=== PATIENT | male | born 1965 | race Caucasian/White ===

== ENCOUNTER 2020-05-19 23:30 | Inpatient (IN) | payer OTHER ==
--- NOTE | 2020-05-20 00:17 | PDOC ---
Documentation entered by Sherita Paiz SCRIBE, acting as scribe for Erica Churchill DO. Erica Churchill DO: This documentation has been prepared by the lucien, Sherita Paiz SCRIBE, under my direction and personally reviewed by me in its entirety. I confirm that the documentation accurately reflects all work, treatment, procedures, and medical decision making performed by me. History of Present Illness - General Stated Complaint: CHEST PAIN Time Seen by Provider: 05/19/20 23:36 History Source: Patient Exam Limitations: No Limitations - History of Present Illness Initial Comments: 05/20/20 00:02 Patient is a 54 year old male with a significant past medical history of hyper tension, high cholesterol, diabetes, strokes, alcohol abuse (6-8 drinks a day), facial surgeries, knee surgeries, arthritis, substance abuse, hepatitis, and emphysema. who presents to the ED, from [facility], with SOB and right sided chest pain x2 hours. Patient stated he was sitting in his chair when the sudden onset of his symptoms occurred. Patient also disclosed that he has nit been taking his perscribed medications for the past 4 days. Patient endorses: current pain, chills, nausea, coughing up more phillips sputum than usual. Patient denies: Allergies: NKDA Past History - Medical History Allergies/Adverse Reactions: Allergies Allergy/AdvReac Type Severity Reaction Status Date / Time No Known Allergies Allergy Verified 05/19/20 22:17 Review of Systems - Review of Systems Able to Perform ROS?: Yes Comments:: 05/20/20 00:07 GENERAL/CONSTITUTIONAL: + Chills. No weakness. HEAD, EYES, EARS, NOSE AND THROAT: No change in vision. No ear pain or discharge. No sore throat. GASTROINTESTINAL: + Nausea. No vomiting, diarrhea or constipation. GENITOURINARY: No dysuria, frequency, or change in urination. CARDIOVASCULAR: + Chest pain + Shortness of breath. RESPIRATORY: + Cough. No wheezing, or hemoptysis. MUSCULOSKELETAL: No joint or muscle swelling or pain. No neck or back pain. SKIN: No rash NEUROLOGIC: No headache, vertigo, loss of consciousness, or change in strength/sensation. ENDOCRINE: No increased thirst. No abnormal weight change. HEMATOLOGIC/LYMPHATIC: No anemia, easy bleeding, or history of blood clots. ALLERGIC/IMMUNOLOGIC: No hives or skin allergy. *Physical Exam - Physical Exam 05/20/20 00:09 Constitutional: Awake, alert, oriented. No acute distress. Head: Normocephalic. Atraumatic Eyes: EOMI. ENT: Mucous membranes are moist and intact. no tongue fasciculations Neck: Supple. Full ROM. No lymphadenopathy. Cardiovascular: Regular rate. Regular rhythm. S1, S2 regular. Distal pulses are 2+ and symmetric. Pulmonary/Chest: No evidence of respiratory distress. soft end expiratory wheezing b/l bases Abdominal: Soft and non-distended. There is no tenderness. No rebound, guarding or rigidity. No organomegaly. No palpable masses. Good bowel sounds. Musculoskeletal: No edema. No cyanosis. No clubbing. Full range of motion in all extremities. No calf tenderness. Radial/pedal pulses are intact and 2+ bilaterally Skin: Skin is warm and dry. Neurological: Alert and oriented to person, place, and time. no focal deficits 05/20/20 00:11 Heart Score/ECG Review - History History: Moderately suspicious - Electrocardiogram EKG: Normal - Age Age: 45-65 - Risk Factors Risk Factors Heart Score: Yes Hx Hypercholesterolemia, Yes Hx Hypertension, Yes Hx Diabetes Based on the list above the patient has:: >/=3 risk factors or Hx atherosclerotic disease - Troponin Troponin: </= normal limit - Score Heart Score - Total: 4 - ECG Intrepretation Comment:: 05/20/20 00:15 sinus at 95, nl axis, nl interval, no acute st/t wave findings ED Treatment Course - LABORATORY CBC & Chemistry Diagram: 05/20/20 00:18 05/20/20 00:18 Medical Decision Making - Medical Decision Making 05/20/20 00:13 a/p: 54yo male with R sided cp -pt went to detox for evaluation for etoh abuse -drug screen at detox showed cocaine + benzo +, but pt denies drug use -states he drinks 4-6 beers a day -pt c/o R sided cp, cough- productive phillips sputum -no n/v/d -hx of emphysema, htn, hld, dm - missed 4 days of meds -will send labs, ekg, cxr, glu -currently no hand tremors or tongue fasiculations, not tachy -will monitor and reassess 05/20/20 01:18 cxr shows pulm vasc congestion 05/20/20 01:30 trop neg 05/20/20 01:30 no pna will obs for acs 05/20/20 01:32 pt also wheezing, hx of emphysema, copd exacerbation albuterol and prednisone given abx for copd exacerbation 05/20/20 01:48 pt updated and agrees to stay for further eval. sleeping in the room microblog sent for obs 05/20/20 02:09 case discussed with alexa who accepts pt to service Discharge - Discharge Information Problems reviewed: Yes Clinical Impression/Diagnosis: Chest pain, Cough, Emphysema of lung Condition: Fair - Admission Yes - Follow up/Referral - Patient Discharge Instructions - Post Discharge Activity
[2020-05-20 00:45] LABS: VENOUS BASE EXCESS -1.9 mmol/L (-2-2); VENOUS O2 SATURATION 67.1 % (70-80); VENOUS PCO2 42.3 mmHg (38-52); VENOUS PH 7.363 (7.310-7.410)
[2020-05-20 00:48] LABS: INR 0.88 (0.83-1.09); PROTHROMBIN TIME (PATIENT) 10.4 SEC (9.7-13.0)
[2020-05-20 00:50] LABS: ACTIVATED PTT 28.4 SECONDS (25.2-36.5); BASO % 1.2 % (0-2.0); EOS % 7.1 % (0-4.5); HEMATOCRIT 39.7 % (35.4-49); HEMOGLOBIN 13.7 GM/dL (11.7-16.9); LYMPH % 33.4 % (8-40); MCH 34.4 pg (25.7-33.7); MCHC 34.5 g/dl (32.0-35.9); MEAN CELL VOLUME 99.7 fl (80-96); MEAN PLT VOLUME 7.5 fl (7.5-11.1); NEUT % 47.3 % (42.8-82.8); PLATELET COUNT 217 K/MM3 (134-434); RBC 3.98 M/mm3 (4.00-5.60); RDW 13.4 % (11.9-15.9); WHITE BLOOD COUNT 5.9 K/mm3 (4.0-10.0)
[2020-05-20] MEDS ORDERED: ALBUTEROL SO4 HFA INHALER IH ONE ×2 (01:18→04:54)
[2020-05-20] MEDS ORDERED: ASPIRIN 81 MG CHEWABLE TABLETS PO ONE (01:19)
[2020-05-20 01:24] LABS: ALBUMIN 3.2 g/dl (3.4-5.0); ALK PHOS 70 U/L (45-117); ANION GAP 7 MMOL/L (8-16); BILIRUBIN,TOTAL 0.3 mg/dL (0.2-1); BLOOD UREA NITROGEN 17.3 mg/dL (7-18); CALCIUM 8.5 mg/dL (8.5-10.1); CHLORIDE 108 mmol/L (98-107); CO2 27 mmol/L (21-32); CREATININE 1.3 mg/dL (0.55-1.3); GLUCOSE,RANDOM 136 mg/dL (74-106); N-TERMINAL BNP 23.6 pg/ml (5-125); POTASSIUM 4.2 mmol/L (3.5-5.1); SGOT/AST 25 U/L (15-37); SGPT/ALT 39 U/L (13-61); SODIUM 141 mmol/L (136-145); TOT PROT 6.6 g/dl (6.4-8.2)
[2020-05-20] MEDS ORDERED: AZITHROMYCIN IVPB 500 MG in DEXTROSE 5%-WATER - 250 ML IVPB ONE (01:32)
[2020-05-20] MEDS ORDERED: predniSONE 20 MG TABLET (UD) PO ONE (01:32)
--- NOTE | 2020-05-20 02:19 | PN ---
Teaching Attending Note Name of Resident: Shiv Odell ATTENDING PHYSICIAN STATEMENT I saw and evaluated the patient. I reviewed the resident's note and discussed the case with the resident. I agree with the resident's findings and plan as documented. SUBJECTIVE: Patient is a 54 year old man with a PMH of Hypertension, HLD, Tobacco use, NI DDM, CVA (residual right hand weakness), Polysubstance (alcohol, benzos, cocaine), Facial surgeries, Knee surgeries, Arthritis, Substance abuse, Hepatitis and Emphysema who presents to the ER from [facility] with SOB and right sided chest pain x2 hours. Patient stated he was sitting in his chair when the sudden onset of his symptoms occurred. Patient also disclosed that he has not been taking his prescribed medications for the past 4 days. Currently in pain, with chills, nausea and is coughing up more phillips sputum than usual. Patient denies abdominal pain, headache, palpitations, dizziness, fever, vomiting, diarrhea, constipation, dysuria, frequency, urgency, melena, hematochezia or hematuria. No sick contacts or recent travels. Family history of lung cancer in father. OBJECTIVE: Alert Vital Signs Period Temp Pulse Resp BP Sys/Cagle Pulse Ox Last 24 Hr 97.9 F 96 19 134/91 95-96 HEENT: No Jaundice, eye redness or discharge, PERRLA, EOMI. Normocephalic, atraumatic. External ears are normal and hearing is grossly intact. No nasal discharge. Neck: Supple, nontender. No palpable adenopathy or thyromegaly. No JVD Chest: Good effort. Bilateral wheezing. Clear to percussion. Heart: Regular. No S3, rub or murmur Abdomen: Not distended, soft, nontender and no HSM. No rebound or guarding. Normal bowel sounds. Ext: Peripheral pulses intact. No leg edema. Skin: Warm and dry. No petechiae, rash or ecchymosis. Neuro: Alert. Oriented x3. CN 2-12 grossly intact. Sensation grossly intact in all four extremities; right hand weakness. Psych: Appropriate mood and affect. Good insight. Abnormal Lab Results 05/20/20 05/20/20 05/20/20 00:18 00:18 00:18 RBC 3.98 L MCV 99.7 H MCH 34.4 H Monocytes % 11.0 H Eosinophils % 7.1 H VBG O2 Sat (Martha) 67.1 L Chloride 108 H Anion Gap 7 L Random Glucose 136 H Albumin 3.2 L Current Medications Generic Name Dose Route Start Last Admin Trade Name Jina PRN Reason Stop Dose Admin Albuterol Sulfate 2 puff 05/20/20 05:45 Ventolin Hfa Inhaler - IH Q4H MANOLO Aspirin 81 mg 05/20/20 10:00 Ecotrin - PO DAILY [facility] Atorvastatin Calcium 40 mg 05/20/20 22:00 Lipitor - PO HS MANOLO Folic Acid 1 mg 05/21/20 10:00 Folic Acid - PO DAILY [facility] Heparin Sodium (Porcine) 5,000 unit 05/20/20 06:00 05/20/20 05:42 Heparin - SQ 5,000 unit TID [facility] Administration Azithromycin 500 mg in 250 mls @ 250 mls/hr 05/21/20 10:00 Zithromax 500mg Ivpb (Pre-Docked) IVPB DAILY [facility] Insulin Aspart 1 vial 05/20/20 07:00 Novolog Vial Sliding Scale - SQ ACHS [facility] Protocol Lorazepam 2 mg 05/20/20 10:00 Ativan - PO ONCE PRN WITHDRAWAL(CONT SUBST) Prednisone 40 mg 05/20/20 10:00 Deltasone - PO DAILY [facility] Thiamine HCl 100 mg 05/21/20 10:00 Vitamin B1 - PO DAILY [facility] ASSESSMENT AND PLAN: 1. COPD exacerbation/Chest pain - CXR shows increased interstitial markings. Chest pain is atypical. Started on supplemental oxygen via nasal cannula. ER staff prescribed Aspirin 324 mg, Albuterol and PO Prednisone 60 mg for the patient. EKG shows NSR at 95/minute and QTc [address]-T wave changes. Initial troponin is negative. Will admit to telemetry, trend troponin, repeat EKG, get ECHO, TSH and fasting lipids. Consult Cardiology/Pulmonary. Will treat with Duoneb, Prednisone 40 mg qd, Symbicort and Azithromycin 500 mg IV QD and monitor peak flow. Viral testing for COVID-19 ordered and patient placed on airborne, droplet and contact isolation. Will continue comprehensive care for all of patients comorbid conditions. 2. Hypoalbuminemia - Possibly due to combined effects of malnutrition and inflammation associated with comorbid conditions. Will ensure adequate dietary protein intake and also consult technical training instructor. Urinalysis pending. 3. DM For now, we will hold the home diabetes drugs and implement sliding scale insulin regimen. Provide comprehensive diabetes care with patient teaching and counseling about the importance of adherence to prescribed diabetes regimen, euglycemia, eye care and foot care. 4. Tobacco Use Counseled on risks associated with tobacco use. We will provide patient all the necessary assistance to facilitate smoking cessation and prescribe Nicotine patch. 5. Obesity Counseled on the risks associated with obesity. Will provide patient all the necessary assistance, counseling and positive reinforcement to facilitate weight loss. Consult technical training instructor. 6. Polysubstance abuse Drug screen at the Detox facility showed cocaine and benzodiazepines. Will monitor for drug withdrawal. Implement [facility] withdrawal [facility] and do neurochecks. Implement seizure, fall and aspiration precautions. Treat with IV Banana bag, thiamine and folic acid. Monitor and replete electrolytes (Ca,Mg,K,P). Counseled patient about abstaining from illicit drugs/alcohol. Will consult senior technical specialist and refer to alcohol/drug detox upon discharge. 7. Hypertension Will restart suitable outpatient antihypertensive drugs when clinically appropriate. Subsequently, will revise regimen to ensure [id number] excellent BP control. Patient counseled on the injurious effects of uncontrolled hypertension. Nonpharmacologic measures to control hypertension like weight loss, salt restriction and exercise stressed. Importance of adherence to treatment regimen and attainment of normotension emphasized. 8. DVT prophylaxis - Lovenox 40 mg SQ q 24 hours. 9. Advance directives - Full code
[2020-05-20] MEDS ORDERED: AZITHROMYCIN IVPB 500 MG/250 ML BAG IVPB ONE (03:48)
[2020-05-20] MEDS ORDERED: predniSONE 20 MG TABLET (UD) ONE ×2 (03:48→10:58)
[2020-05-20] MEDS ORDERED: ASPIRIN 325 MG ENTERIC COATED TABLET (FP) ONE (03:48)
[2020-05-20] MEDS ORDERED: THIAMINE HCL 200 MG/2 ML VIAL ONE (05:41)
[2020-05-20] MEDS ORDERED: HEPARIN NA (PORCINE) 5,000 UNITS/ML 1ML VIAL ONE ×3 (05:41→22:14)
[2020-05-20] MEDS: HEPARIN NA (PORCINE) 5,000 UNITS/ML 1ML VIAL SQ SCH ×3 (05:42→22:18)
[2020-05-20] MEDS ORDERED: THIAMINE HCL 200 MG/2 ML VIAL IVPB ONE (05:45)
[2020-05-20] MEDS: ALBUTEROL SO4 HFA INHALER IH SCH ×5 (06:35→21:59)
[2020-05-20] MEDS: INSULIN SLIDING SCALE (NOVOLOG) 1 VIAL SQ SCH ×4 (07:21→22:14)
--- NOTE | 2020-05-20 08:22 | HP ---
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 Was seeking detox at [facility] but was declined d/t CIWA 3. Was offered Rehab but had sudden- onset Right-sided chest "tightness" while seated. Then endorsed SOB. Chest "tightness has resolved in the ED. Has had chronic intermittent cough w/ greenish-srinivasan phlegm. Has been treated for PNA 1 year prior. Has had breathing issues for over 5ys. At baseline, is able to play basketball and walk without SOB. Never had seizures. Has had episodes of tremors in the past. Has not been taking any of his regularly prescribed medications dt being homeless and not being able to reach his sister's house. Was incarcerated for 25ys, released in 2017. [facility] Course: -JEWELL 0.020 -POC UDS: +cocaine, +benzo -CIWA 3 -didn't qualify for Detox but offered Rehab ER course was notable for: -97.9F, 96, 134/91 -EM physical exam notable for end-expiratory wheezes -HEART 4 -prednisone 60, azithromycin, albuterol x1, [id number] Recent Travel: none PAST MEDICAL HISTORY: as above PAST SURGICAL HISTORY: jaw surgery, knee surgery, deviated septum surgery Social History: Smoking: denies Alcohol: denies Drugs: denies Allergies No Known Allergies Allergy (Verified 05/19/20 22:17) HOME MEDICATIONS: Home Medications Medication Instructions Recorded Unobtainable 05/20/20 REVIEW OF SYSTEMS CONSTITUTIONAL: Absent: fever, chills, diaphoresis, generalized weakness, malaise, loss of appetite, weight change HEENT: Absent: rhinorrhea, nasal congestion, throat pain, throat swelling, difficulty swallowing, mouth swelling, ear pain, eye pain, visual changes CARDIOVASCULAR: Absent: chest pain, syncope, palpitations, irregular heart rate, lightheadedness, peripheral edema RESPIRATORY: cough, SOB Absent: dyspnea with exertion, orthopnea, wheezing, stridor, hemoptysis GASTROINTESTINAL: Absent: abdominal pain, abdominal distension, nausea, vomiting, diarrhea, const ipation, melena, hematochezia GENITOURINARY: Absent: dysuria, frequency, urgency, hesitancy, hematuria, flank pain, genital pain MUSCULOSKELETAL: Absent: myalgia, arthralgia, joint swelling, back pain, neck pain SKIN: Absent: rash, itching, pallor HEMATOLOGIC/IMMUNOLOGIC: Absent: easy bleeding, easy bruising, lymphadenopathy, frequent infections ENDOCRINE: Absent: unexplained weight gain, unexplained weight loss, heat intolerance, cold intolerance NEUROLOGIC: Absent: headache, focal weakness or paresthesias, dizziness, unsteady gait, seizure, mental status changes, bladder or bowel incontinence PSYCHIATRIC: Absent: anxiety, depression, suicidal or homicidal ideation, hallucinations. PHYSICAL EXAMINATION Vital Signs - 24 hr 05/19/20 05/20/20 05/20/20 23:55 02:15 03:55 Temperature 97.9 F Pulse Rate 96 H Pulse Rate [ 84 Left Radial] Respiratory 19 16 Rate Blood Pressure 134/91 Blood Pressure 142/89 [Left Arm] O2 Sat by Pulse 95 96 98 Oximetry (%) 05/20/20 05/20/20 05/20/20 06:30 07:29 07:31 Temperature 98.3 F Pulse Rate Pulse Rate [ 84 Left Radial] Respiratory 17 Rate Blood Pressure Blood Pressure 149/99 [Left Arm] O2 Sat by Pulse 95 95 95 Oximetry (%) GENERAL: Awake, alert, and fully oriented, in no acute distress. Mildly dishevelled. HEAD: Normal with no signs of trauma. Poor dentition EYES: Pupils equal, round and reactive to light, extraocular movements intact, sclera anicteric, conjunctiva clear. EARS, NOSE, THROAT: Ears normal, nares patent, oropharynx clear without exudates. Moist mucous membranes. NECK: Normal range of motion, supple without lymphadenopathy, JVD, or masses. LUNGS: Breath sounds equal, clear to auscultation bilaterally. No wheezes, and no crackles. HEART: Regular rate and rhythm, normal S1 and S2 without murmur, rub or gallop. ABDOMEN: Soft, nontender, not distended, no guarding, no rebound, no masses. MUSCULOSKELETAL: Normal range of motion at all joints. No bony deformities or tenderness. UPPER EXTREMITIES: 2+ pulses, warm, well-perfused. No cyanosis. No clubbing. No peripheral edema. LOWER EXTREMITIES: 2+ pulses, warm, well-perfused. No calf tenderness. No peripheral edema. NEUROLOGICAL: Normal speech. Right hand with 4.5/5 bioinformatics specialist strength. CN II-XII intact. 5/5 strength of LUE, LLE, RLE CIWA 0 Laboratory Results - last 24 hr 05/20/20 05/20/20 05/20/20 00:18 00:18 00:18 WBC 5.9 RBC 3.98 L Hgb 13.7 Hct 39.7 MCV 99.7 H MCH 34.4 H MCHC 34.5 RDW 13.4 Plt Count 217 MPV 7.5 Absolute Neuts (auto) 2.8 Neutrophils % 47.3 Lymphocytes % 33.4 Monocytes % 11.0 H Eosinophils % 7.1 H Basophils % 1.2 Nucleated RBC % 0 PT with INR 10.40 INR 0.88 PTT (Actin FS) 28.4 VBG pH POC VBG pCO2 POC VBG pO2 VBG HCO3 VBG O2 Sat (Martha) VBG Base Excess Sodium 141 Potassium 4.2 Chloride 108 H Carbon Dioxide 27 Anion Gap 7 L BUN 17.3 Creatinine 1.3 Est GFR (CKD-EPI)AfAm 70.69 Est GFR (CKD-EPI)NonAf 60.99 POC Glucometer Random Glucose 136 H Calcium 8.5 Total Bilirubin 0.3 AST 25 ALT 39 Alkaline Phosphatase 70 Creatine Kinase 141 Troponin I < 0.02 B-Natriuretic Peptide 23.6 Total Protein 6.6 Albumin 3.2 L 05/20/20 05/20/20 00:18 06:20 WBC RBC Hgb Hct MCV MCH MCHC RDW Plt Count MPV Absolute Neuts (auto) Neutrophils % Lymphocytes % Monocytes % Eosinophils % Basophils % Nucleated RBC % PT with INR INR PTT (Actin FS) VBG pH 7.363 POC VBG pCO2 42.3 POC VBG pO2 36.2 VBG HCO3 23.5 VBG O2 Sat (Martha) 67.1 L VBG Base Excess -1.9 Sodium Potassium Chloride Carbon Dioxide Anion Gap BUN Creatinine Est GFR (CKD-EPI)AfAm Est GFR (CKD-EPI)NonAf POC Glucometer 141 Random Glucose Calcium Total Bilirubin AST ALT Alkaline Phosphatase Creatine Kinase Troponin I B-Natriuretic Peptide Total Protein Albumin ASSESSMENT/PLAN: 54M w/ pmh of HTN, HLD, IDDM(metform + basalgar 10U HS), stroke(persistent right 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 Admitted to Tele-Obs for ACS r/o and "COPD exacerbation". Pt symptoms resolved. #Right-sided chest pain --likely 2/2 tightness from COPD > HEART 4 > troponin neg x1 - sp ASA 324mg in ED - cw ASA 81mg QD - trend troponin - cardiology consult(Gitig): --recs pending #COPD exacerbation(wheezes resolved on my examination) - albuterol 2puffs q4h, scheduled - prednisone 40, QD - cw azithro #EtOH usage disorder --not in withdrawal > CIWA 0 - ativan 2mg PO in case of signs of withdrawal, then will start taper if necessary #NORMAN vs CKD > Cr 1.3 - US renal --pending FEN - no IVF - NPO DVT PPX - SQH Family Medical History Family History: As Documented Family Hx Cancer: Father (lung cancer) Family Hx Respiratory Disorders: Mother (emphysema) Visit type - Emergency Visit Emergency Visit: Yes ED Registration Date: 05/20/20 Care time: The patient presented to the Emergency Department on the above date and was hospitalized for further evaluation of their emergent condition. - New Patient This patient is new to me today: Yes Date on this admission: 05/20/20 - Critical Care Critical Care patient: No ATTENDING PHYSICIAN STATEMENT I saw and evaluated the patient. I reviewed the resident's note and discussed the case with the resident. I agree with the resident's findings and plan as documented. SUBJECTIVE: OBJECTIVE: ASSESSMENT AND PLAN:
--- NOTE | 2020-05-20 08:43 | PN ---
Teaching Attending Note Name of Resident: Maicol Schmidt ATTENDING PHYSICIAN STATEMENT I saw and evaluated the patient. I reviewed the resident's note and discussed the case with the resident. I agree with the resident's findings and plan as documented. SUBJECTIVE: Patient is comfortable with no alcohol withdrawel. OBJECTIVE: Vital Signs Temperature 98.3 F 05/20/20 06:30 Pulse Rate 84 05/20/20 06:30 Respiratory Rate 17 05/20/20 06:30 Blood Pressure 149/99 05/20/20 06:30 O2 Sat by Pulse Oximetry (%) 95 05/20/20 07:31 PE:per resident's note CBCD WBC 5.9 K/mm3 (4.0-10.0) 05/20/20 00:18 RBC 3.98 M/mm3 (4.00-5.60) L 05/20/20 00:18 Hgb 13.7 GM/dL (11.7-16.9) 05/20/20 00:18 Hct 39.7 % (35.4-49) 05/20/20 00:18 MCV 99.7 fl (80-96) H 05/20/20 00:18 MCHC 34.5 g/dl (32.0-35.9) 05/20/20 00:18 RDW 13.4 % (11.9-15.9) 05/20/20 00:18 Plt Count 217 K/MM3 (134-434) 05/20/20 00:18 MPV 7.5 fl (7.5-11.1) 05/20/20 00:18 CMP Sodium 141 mmol/L (136-145) 05/20/20 00:18 Potassium 4.2 mmol/L (3.5-5.1) 05/20/20 00:18 Chloride 108 mmol/L (98-107) H 05/20/20 00:18 Carbon Dioxide 27 mmol/L (21-32) 05/20/20 00:18 Anion Gap 7 MMOL/L (8-16) L 05/20/20 00:18 BUN 17.3 mg/dL (7-18) 05/20/20 00:18 Creatinine 1.3 mg/dL (0.55-1.3) 05/20/20 00:18 Random Glucose 136 mg/dL (74-106) H 05/20/20 00:18 Calcium 8.5 mg/dL (8.5-10.1) 05/20/20 00:18 Total Bilirubin 0.3 mg/dL (0.2-1) 05/20/20 00:18 AST 25 U/L (15-37) 05/20/20 00:18 ALT 39 U/L (13-61) 05/20/20 00:18 Alkaline Phosphatase 70 U/L (45-117) 05/20/20 00:18 Total Protein 6.6 g/dl (6.4-8.2) 05/20/20 00:18 Albumin 3.2 g/dl (3.4-5.0) L 05/20/20 00:18 CARDIAC ENZYMES Creatine Kinase 141 U/L (26-308) 05/20/20 00:18 Troponin I < 0.02 ng/ml (0.00-0.05) 05/20/20 00:18 Current Medications Generic Name Dose Route Start Last Admin Trade Name Freq PRN Reason Stop Dose Admin Albuterol Sulfate 2 puff 05/20/20 05:45 05/20/20 06:35 Ventolin Hfa Inhaler - IH 2 puff Q4H MANOLO Administration Aspirin 81 mg 05/20/20 10:00 Ecotrin - PO DAILY [facility] Atorvastatin Calcium 40 mg 05/20/20 22:00 Lipitor - PO HS MANOLO Folic Acid 1 mg 05/21/20 10:00 Folic Acid - PO DAILY [facility] Heparin Sodium (Porcine) 5,000 unit 05/20/20 06:00 05/20/20 05:42 Heparin - SQ 5,000 unit TID MANOLO Administration Azithromycin 500 mg in 250 mls @ 250 mls/hr 05/21/20 10:00 Zithromax 500mg Ivpb (Pre-Docked) IVPB DAILY [facility] Insulin Aspart 1 vial 05/20/20 07:00 05/20/20 07:21 Novolog Vial Sliding Scale - SQ Not Given ACHS [facility] Protocol Lorazepam 2 mg 05/20/20 10:00 Ativan - PO ONCE PRN WITHDRAWAL(CONT SUBST) Prednisone 40 mg 05/20/20 10:00 Deltasone - PO DAILY [facility] Thiamine HCl 100 mg 05/21/20 10:00 Vitamin B1 - PO DAILY [facility] Home Medications Medication Instructions Recorded Unobtainable 05/20/20 CXR: some congestive changes ASSESSMENT AND PLAN: This patient is a 54yom with PMhx of HTN, HLD, IDDM (metform + basalgar 10U HS), 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 and was found to have acute copd exacerbation. #Acute COPD exacerbation: on steroid, albuterol continue , will continue with oral steroid for total of 5 days #Acute congestive changes: echo ordered, BNP is pending. #Alcohol dependency :not in withdrawal, on thiamine, FA continue, ativan prn for possible withdrawel #Polysubstance dependency: abstinence #NORMAN : monitor in the setting of being diabetic, ordered A1c #IDDM: continue home meds, follow A1c #Hx of stroke with residual (right diamond powder mixer weakness) #Covid Pending #Hx of hepatitis C(treated with Abraham) #Monitor electrolytes DVT Px: hepain sq
[2020-05-20] MEDS ORDERED: LORazepam 1 MG TABLET PO PRN (10:00)
--- NOTE | 2020-05-20 10:00 | EKG ---
Test Reason : Blood Pressure : / mmHG Vent. Rate : 095 BPM Atrial Rate : 095 BPM P-R Int : 138 ms QRS Dur : 084 ms QT Int : 358 ms P-R-T Axes : 074 064 066 degrees QTc Int : 449 ms NORMAL SINUS RHYTHM NORMAL ECG NO PREVIOUS ECGS AVAILABLE Confirmed by ARDEN BARRETO MD ([id number]) on 05/20/2020 10:00:10 AM Referred By: Confirmed By:ARDEN BARRETO MD
[2020-05-20] MEDS ORDERED: ASPIRIN COATED 81 MG TABLET.EC ONE (10:58)
[2020-05-20] MEDS: predniSONE 20 MG TABLET (UD) PO SCH (10:59)
[2020-05-20] MEDS: ASPIRIN COATED 81 MG TABLET.EC PO SCH (10:59)
[2020-05-20 12:26] LABS: ANION GAP 6 MMOL/L (8-16); BLOOD UREA NITROGEN 15.8 mg/dL (7-18); CALCIUM 8.8 mg/dL (8.5-10.1); CHLORIDE 108 mmol/L (98-107); CHOLESTEROL 214 mg/dL (50-200); CO2 26 mmol/L (21-32); CREATININE 1.3 mg/dL (0.55-1.3); GLUCOSE,RANDOM 184 mg/dL (74-106); HDL CHOLESTEROL 65 mg/dL (40-60); LDL CHOLESTEROL (ONLY SJRH) 129 mg/dL (5-100); MAGNESIUM 2.2 mg/dL (1.8-2.4); POTASSIUM 4.2 mmol/L (3.5-5.1); SODIUM 139 mmol/L (136-145); TRIGLYCERIDES 120 mg/dL (0-150)
--- NOTE | 2020-05-20 13:53 | CON.PULM ---
Consult Consult Specialty:: PULMONARY Referred by:: Dr Ingram Reason for Consultation:: shortness of breath - History of Present Illness Chief Complaint: shortness of breath History of Present Illness: 54yo male with h/o HTN, DM, hyperlipidemia, h/o CVA, polysubstance abuse, Hep C s/p treatment who was admitted from [facility] with worsening shortness of breath. Reports some chest tightness, a cough productive of srinivasan sputum and wheezing. No fevers, chills or sweats. He does have an albuterol inhaler but has had access to his medications for the past 4 days. He is a current smoker, was as much as 1 PPD now down to 5-6 cigarettes/day. - History Source History Provided By: Patient, Medical Record Limitations to Obtaining History: No Limitations - Past Medical History Cardio/Vascular: Yes: HTN, Hyperlipdemia Endocrine: Yes: Diabetes Mellitus - Smoking History Smoking history: Never smoked Have you smoked in the past 12 months: No Home Medications - Allergies Allergies/Adverse Reactions: Allergies Allergy/AdvReac Type Severity Reaction Status Date / Time No Known Allergies Allergy Verified 05/19/20 22:17 - Home Medications Home Medications: Ambulatory Orders Chlordiazepoxide [Librium -] 25 mg PO DAILY 05/20/20 Lisinopril 10 mg PO DAILY 05/20/20 Metformin HCl [Glucophage] 500 mg PO BID 05/20/20 Metoprolol Succinate 50 mg PO DAILY 05/20/20 Rosuvastatin [Crestor -] 5 mg PO DAILY 05/20/20 Family Medical History Family Hx Cancer: Father (lung cancer) Family Hx Respiratory Disorders: Mother (emphysema) Review of Systems - Review of Systems Constitutional: reports: Weakness. denies: Chills, Fever Eyes: denies: Recent Change in Vision HENT: denies: Nasal Congestion, Throat Pain Neck: denies: Stiffness, Tenderness Cardiovascular: reports: Shortness of Breath. denies: Chest Pain, Edema Respiratory: reports: Cough, SOB on Exertion, Wheezing. denies: Hemoptysis Gastrointestinal: denies: Abdominal Pain, Nausea, Vomiting Genitourinary: denies: Dysuria, Hematuria Neurological: denies: Dizziness, Headache Endocrine: denies: Unexplained Weight Loss Physical Exam Vital Sings: Vital Signs Temperature 98.3 F 05/20/20 06:30 Pulse Rate 84 05/20/20 06:30 Respiratory Rate 17 05/20/20 06:30 Blood Pressure 149/99 05/20/20 06:30 O2 Sat by Pulse Oximetry (%) 95 05/20/20 07:31 Labs: CBC, BMP 05/20/20 00:18 05/20/20 11:40 Imaging - Results Chest X-ray: Report Reviewed, Image Reviewed (hilar fullness) Assessment/Plan Acute COPD Exacerbation Polysubstance Abuse Hep C s/p tx HTN DM Hyperlipidemia Smoker - continue steroids - inhaled bronchodilators - agree with azithromycin - O2 to keep SpO2 >90% - glucose control while on systemic steroids - smoking cessation discussed - DVT prophylaxis Thank you for this consult Jose Luis Bundy MD
--- NOTE | 2020-05-20 14:56 | CON.CARD ---
Cardiology Consult (text) - Consultation Consultation Note: cc: sob hpi: 54 m hx htn, hld, dm, cva, etoh abuse, cocaine use, smoking, copd, here with sob. Past few days has noticed wheezing, sob, cough, and central chest tightness. No loc pnd orthopnea dizzy le edema. After getting copd tx in er he is starting to feel better. pmh: per hpi psh: knee surgery social: per hpi fam: no premature cad, scd ros: per hpi; all others nl meds: Home Medications Medication Instructions Recorded Chlordiazepoxide [Librium -] 25 mg PO DAILY 05/20/20 Lisinopril 10 mg PO DAILY 05/20/20 Metformin HCl [Glucophage] 500 mg PO BID 05/20/20 Metoprolol Succinate 50 mg PO DAILY 05/20/20 Rosuvastatin [Crestor -] 5 mg PO DAILY 05/20/20 Current Medications Generic Name Dose Route Start Last Admin Trade Name Freq PRN Reason Stop Dose Admin Albuterol Sulfate 2 puff 05/20/20 05:45 05/20/20 10:56 Ventolin Hfa Inhaler - IH 2 puff Q4H MANOLO Administration Aspirin 81 mg 05/20/20 10:00 05/20/20 10:59 Ecotrin - PO 81 mg DAILY MANOLO Administration Atorvastatin Calcium 40 mg 05/20/20 22:00 Lipitor - PO HS MANOLO Folic Acid 1 mg 05/21/20 10:00 Folic Acid - PO DAILY MANOLO Heparin Sodium (Porcine) 5,000 unit 05/20/20 06:00 05/20/20 05:42 Heparin - SQ 5,000 unit TID MANOLO Administration Azithromycin 500 mg in 250 mls @ 250 mls/hr 05/21/20 10:00 Zithromax 500mg Ivpb (Pre-Docked) IVPB DAILY MANOLO Insulin Aspart 1 vial 05/20/20 07:00 05/20/20 12:43 Novolog Vial Sliding Scale - SQ 4 units ACHS MANOLO Administration Protocol Lorazepam 2 mg 05/20/20 10:00 Ativan - PO ONCE PRN WITHDRAWAL(CONT SUBST) Prednisone 40 mg 05/20/20 10:00 05/20/20 10:59 Deltasone - PO 40 mg DAILY MANOLO Administration Thiamine HCl 100 mg 05/21/20 10:00 Vitamin B1 - PO DAILY MANOLO pe: Vital Signs Period Temp Pulse Resp BP Sys/Cagle Pulse Ox Last 24 Hr 97.9 F-98.3 F 84-96 16-19 134-149/89-99 95-98 nad no jvd rrr s1s2 nomrg mild wheeze, nl eff aao3 no le e/c/c abd nt nd pos bs no jaundice diaphoresis pos dp pt no carotid bruits Laboratory Last Values WBC 5.9 K/mm3 (4.0-10.0) 05/20/20 00:18 RBC 3.98 M/mm3 (4.00-5.60) L 05/20/20 00:18 Hgb 13.7 GM/dL (11.7-16.9) 05/20/20 00:18 Hct 39.7 % (35.4-49) 05/20/20 00:18 MCV 99.7 fl (80-96) H 05/20/20 00:18 MCH 34.4 pg (25.7-33.7) H 05/20/20 00:18 MCHC 34.5 g/dl (32.0-35.9) 05/20/20 00:18 RDW 13.4 % (11.9-15.9) 05/20/20 00:18 Plt Count 217 K/MM3 (134-434) 05/20/20 00:18 MPV 7.5 fl (7.5-11.1) 05/20/20 00:18 Absolute Neuts (auto) 2.8 K/mm3 (1.5-8.0) 05/20/20 00:18 Neutrophils % 47.3 % (42.8-82.8) 05/20/20 00:18 Lymphocytes % 33.4 % (8-40) 05/20/20 00:18 Monocytes % 11.0 % (3.8-10.2) H 05/20/20 00:18 Eosinophils % 7.1 % (0-4.5) H 05/20/20 00:18 Basophils % 1.2 % (0-2.0) 05/20/20 00:18 Nucleated RBC % 0 % (0-0) 05/20/20 00:18 PT with INR 10.40 SEC (9.7-13.0) 05/20/20 00:18 INR 0.88 (0.83-1.09) 05/20/20 00:18 PTT (Actin FS) 28.4 SECONDS (25.2-36.5) 05/20/20 00:18 VBG pH 7.363 (7.310-7.410) 05/20/20 00:18 POC VBG pCO2 42.3 mmHg (38-52) 05/20/20 00:18 POC VBG pO2 36.2 mmHg (28-48) 05/20/20 00:18 VBG HCO3 23.5 mmol/L (23-29) 05/20/20 00:18 VBG O2 Sat (Martha) 67.1 % (70-80) L 05/20/20 00:18 VBG Base Excess -1.9 mmol/L (-2-2) 05/20/20 00:18 Sodium 139 mmol/L (136-145) 05/20/20 11:40 Potassium 4.2 mmol/L (3.5-5.1) 05/20/20 11:40 Chloride 108 mmol/L (98-107) H 05/20/20 11:40 Carbon Dioxide 26 mmol/L (21-32) 05/20/20 11:40 Anion Gap 6 MMOL/L (8-16) L 05/20/20 11:40 BUN 15.8 mg/dL (7-18) 05/20/20 11:40 Creatinine 1.3 mg/dL (0.55-1.3) 05/20/20 11:40 Est GFR (CKD-EPI)AfAm 70.69 05/20/20 11:40 Est GFR (CKD-EPI)NonAf 60.99 05/20/20 11:40 POC Glucometer 208 UNITS (80-120) 05/20/20 11:02 Random Glucose 184 mg/dL (74-106) H 05/20/20 11:40 Hemoglobin A1c % 5.8 % (4.2-6.3) 05/20/20 11:40 Calcium 8.8 mg/dL (8.5-10.1) 05/20/20 11:40 Phosphorus 2.0 mg/dL (2.5-4.9) L 05/20/20 11:40 Magnesium 2.2 mg/dL (1.8-2.4) 05/20/20 11:40 Total Bilirubin 0.3 mg/dL (0.2-1) 05/20/20 00:18 AST 25 U/L (15-37) 05/20/20 00:18 ALT 39 U/L (13-61) 05/20/20 00:18 Alkaline Phosphatase 70 U/L (45-117) 05/20/20 00:18 Creatine Kinase 141 U/L (26-308) 05/20/20 00:18 Troponin I < 0.02 ng/ml (0.00-0.05) 05/20/20 11:40 B-Natriuretic Peptide 23.6 pg/ml (5-125) 05/20/20 00:18 Total Protein 6.6 g/dl (6.4-8.2) 05/20/20 00:18 Albumin 3.2 g/dl (3.4-5.0) L 05/20/20 00:18 Triglycerides 120 mg/dL (0-150) 05/20/20 11:40 Cholesterol 214 mg/dL (50-200) H 05/20/20 11:40 Total LDL Cholesterol 129 mg/dL (5-100) H 05/20/20 11:40 HDL Cholesterol 65 mg/dL (40-60) H 05/20/20 11:40 ecg: sr nl intervals no ischemic changes cxr: no sig chf a/p: 54 m hx htn, hld, dm, cva, etoh abuse, cocaine use, smoking, copd, here with sob. sob, acute copd: -trops negx2, bnp wnl, no signs chf or acs -check echo -sxs seem related to copd, agree with steroids/nebs per pulm htn: -cont lisinopril -hold toprol given hx of cocaine use as well as copd -if bp becomes elevated would raise lisinopril or add norvasc next hld: -cont statin polysubstance abuse: -cessation discussed dc tele
[2020-05-20] MEDS ORDERED: chlordiazePOXIDE HCL 25 MG CAPSULE PO PRN (14:59)
--- NOTE | 2020-05-20 15:05 | PN ---
Physical Exam: SUBJECTIVE: Patient seen and examined at bedside. No acute events reported overnight. This morning patient reports improvement of chest pain after receiving medication. OBJECTIVE: Vital Signs Period Temp Pulse Resp BP Sys/Cagle Pulse Ox Last 24 Hr 97.9 F-98.3 F 84-96 16-19 134-149/89-99 95-98 GENERAL: AAOx3, in no acute distress HEENT: NCAT, PERRLA, EOMI, sclera anicteric, conjunctiva clear, oropharynx clear w/o exudates. MMM. NECK: Normal ROM, supple, no lymphadenopathy, JVD, or masses LUNGS: CTABL no wheezes/ rhonchi/ rales. No distress, speaks in full sentences. No increased work of breathing. HEART: RRR, normal S1 S2, no M/R/G, peripheral pulses 2+ and equal b/l ABDOMEN: Soft, NTND, + BS. No guarding or rebound. No hepatomegaly or splenomegaly. MSK: ROM WNL EXTREMITIES: Normal inspection. No peripheral edema. No clubbing or cyanosis. NEUROLOGICAL: CN II-XII intact. Normal speech, normal gait, no focal sensorimotor deficits. SKIN: Warm, Dry, normal turgor, no rashes or lesions noted Laboratory Results - last 24 hr CBC, BMP 05/20/20 00:18 05/20/20 11:40 05/20/20 05/20/20 05/20/20 00:18 00:18 00:18 WBC 5.9 RBC 3.98 L Hgb 13.7 Hct 39.7 MCV 99.7 H MCH 34.4 H MCHC 34.5 RDW 13.4 Plt Count 217 MPV 7.5 Absolute Neuts (auto) 2.8 Neutrophils % 47.3 Lymphocytes % 33.4 Monocytes % 11.0 H Eosinophils % 7.1 H Basophils % 1.2 Nucleated RBC % 0 PT with INR 10.40 INR 0.88 PTT (Actin FS) 28.4 VBG pH POC VBG pCO2 POC VBG pO2 VBG HCO3 VBG O2 Sat (Martha) VBG Base Excess Sodium 141 Potassium 4.2 Chloride 108 H Carbon Dioxide 27 Anion Gap 7 L BUN 17.3 Creatinine 1.3 Est GFR (CKD-EPI)AfAm 70.69 Est GFR (CKD-EPI)NonAf 60.99 POC Glucometer Random Glucose 136 H Hemoglobin A1c % Calcium 8.5 Phosphorus Magnesium Total Bilirubin 0.3 AST 25 ALT 39 Alkaline Phosphatase 70 Creatine Kinase 141 Troponin I < 0.02 B-Natriuretic Peptide 23.6 Total Protein 6.6 Albumin 3.2 L Triglycerides Cholesterol Total LDL Cholesterol HDL Cholesterol 05/20/20 05/20/20 05/20/20 00:18 06:20 11:02 WBC RBC Hgb Hct MCV MCH MCHC RDW Plt Count MPV Absolute Neuts (auto) Neutrophils % Lymphocytes % Monocytes % Eosinophils % Basophils % Nucleated RBC % PT with INR INR PTT (Actin FS) VBG pH 7.363 POC VBG pCO2 42.3 POC VBG pO2 36.2 VBG HCO3 23.5 VBG O2 Sat (Martha) 67.1 L VBG Base Excess -1.9 Sodium Potassium Chloride Carbon Dioxide Anion Gap BUN Creatinine Est GFR (CKD-EPI)AfAm Est GFR (CKD-EPI)NonAf POC Glucometer 141 208 Random Glucose Hemoglobin A1c % Calcium Phosphorus Magnesium Total Bilirubin AST ALT Alkaline Phosphatase Creatine Kinase Troponin I B-Natriuretic Peptide Total Protein Albumin Triglycerides Cholesterol Total LDL Cholesterol HDL Cholesterol 05/20/20 05/20/20 11:40 11:40 WBC RBC Hgb Hct MCV MCH MCHC RDW Plt Count MPV Absolute Neuts (auto) Neutrophils % Lymphocytes % Monocytes % Eosinophils % Basophils % Nucleated RBC % PT with INR INR PTT (Actin FS) VBG pH POC VBG pCO2 POC VBG pO2 VBG HCO3 VBG O2 Sat (Martha) VBG Base Excess Sodium 139 Potassium 4.2 Chloride 108 H Carbon Dioxide 26 Anion Gap 6 L BUN 15.8 Creatinine 1.3 Est GFR (CKD-EPI)AfAm 70.69 Est GFR (CKD-EPI)NonAf 60.99 POC Glucometer Random Glucose 184 H Hemoglobin A1c % 5.8 Calcium 8.8 Phosphorus 2.0 L Magnesium 2.2 Total Bilirubin AST ALT Alkaline Phosphatase Creatine Kinase Troponin I < 0.02 B-Natriuretic Peptide Total Protein Albumin Triglycerides 120 Cholesterol 214 H Total LDL Cholesterol 129 H HDL Cholesterol 65 H Active Medications Generic Name Dose Route Start Last Admin Trade Name Freq PRN Reason Stop Dose Admin Albuterol Sulfate 2 puff 05/20/20 05:45 05/20/20 10:56 Ventolin Hfa Inhaler - IH 2 puff Q4H MANOLO Administration Aspirin 81 mg 05/20/20 10:00 09/10/20 10:59 Ecotrin - PO 81 mg DAILY MANOLO Administration Atorvastatin Calcium 40 mg 05/20/20 22:00 Lipitor - PO HS MANOLO Chlordiazepoxide HCl 25 mg 05/20/20 14:59 Librium - PO Q4H PRN WITHDRAWAL(CONT SUBST) Folic Acid 1 mg 05/21/20 10:00 Folic Acid - PO DAILY MANOLO Heparin Sodium (Porcine) 5,000 unit 05/20/20 06:00 05/20/20 05:42 Heparin - SQ 5,000 unit TID MANOLO Administration Azithromycin 500 mg in 250 mls @ 250 mls/hr 05/21/20 10:00 Zithromax 500mg Ivpb (Pre-Docked) IVPB DAILY [facility] Insulin Aspart 1 vial 05/20/20 07:00 05/20/20 12:43 Novolog Vial Sliding Scale - SQ 4 units ACHS MANOLO Administration Protocol Lorazepam 2 mg 05/20/20 10:00 Ativan - PO ONCE PRN WITHDRAWAL(CONT SUBST) Prednisone 40 mg 05/20/20 10:00 05/20/20 10:59 Deltasone - PO 40 mg DAILY MANOLO Administration Thiamine HCl 100 mg 05/21/20 10:00 Vitamin B1 - PO DAILY [facility] ASSESSMENT/PLAN: 54M w/ PMX of HTN, HLD, IDDM, 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 Admitted for right-sided chest pain and COPD exacerbation. #Right-sided chest pain - troponin neg x2 -c/w ASA 81 mg daily - cardio consult: pain likely from COPD, continue steroids/nebs, continue lisinopril, statin. HOLD metoprolol -echo ordered #COPD exacerbation -lungs were clear to auscultation b/l - albuterol 2puffs q4h, scheduled -Pulm consult: c/w steroids, bronchodilators, and abx. keep O2 sat >90 and monitor glucose while on steroids - prednisone 40, QD - c/w azithromycin #EtOH usage disorder - Librium 25 mg Q4 PRN for HR > 100 and Systolic BP > 140 -continue to monitor for s/s of withdrawal #NORMAN vs CKD > Cr 1.3 - US renal -morphologiccally normal kidneys with no evidence of hydro or acute pathology #FEN - no IVF -montior lytes; replete as necessary - diabetic diet #Prophylaxis - DVT: [facility] dispo- continue to monitor in tele Visit type - Emergency Visit Emergency Visit: Yes ED Registration Date: 05/20/20 Care time: The patient presented to the Emergency Department on the above date and was hospitalized for further evaluation of their emergent condition. - New Patient This patient is new to me today: Yes Date on this admission: 05/20/20 - Critical Care Critical Care patient: No - Discharge Referral Referred to [facility] No ATTENDING PHYSICIAN STATEMENT I saw and evaluated the patient. I reviewed the resident's note and discussed the case with the resident. I agree with the resident's findings and plan as documented. SUBJECTIVE: OBJECTIVE: ASSESSMENT AND PLAN:
[2020-05-20] MEDS ORDERED: LISINOPRIL 10 MG TABLET (FP) PO ONE (15:27)
[2020-05-20] MEDS ORDERED: chlordiazePOXIDE HCL 25 MG CAPSULE ONE (19:45)
[2020-05-20] MEDS ORDERED: ATORVASTATIN CA 40 MG TABLET (FP) PO SCH (22:00)
[2020-05-21 00:11] VITALS: BMI 25.2
[2020-05-21] MEDS: ALBUTEROL SO4 HFA INHALER IH SCH ×3 (03:26→09:40)
[2020-05-21] MEDS: HEPARIN NA (PORCINE) 5,000 UNITS/ML 1ML VIAL SQ SCH (05:21)
--- NOTE | 2020-05-21 05:29 | PN ---
Progress Note, Physician Chief Complaint: No CP No palps No dizziness TELE: NSR. History of Present Illness: ETOH and Cocaine hx AOB Acute exac. COPD 54 m hx htn, hld, dm, cva, etoh abuse, cocaine use, smoking, copd, here with sob. Past few days has noticed wheezing, sob, cough, and central chest tightness. No loc pnd orthopnea dizzy le edema. After getting copd tx in er he is starting to felt better. Social: + tobacco - Current Medication List Current Medications: Active Medications Albuterol Sulfate (Ventolin Hfa Inhaler -) 2 puff IH Q4H [facility] Last Admin: 05/21/20 05:21 Dose: 2 puff Documented by: Aspirin (Ecotrin -) 81 mg PO DAILY [facility] Last Admin: 05/20/20 10:59 Dose: 81 mg Documented by: Chlordiazepoxide HCl (Librium -) 25 mg PO Q4H PRN PRN Reason: WITHDRAWAL(CONT SUBST) Last Admin: 05/20/20 19:46 Dose: 25 mg Documented by: Folic Acid (Folic Acid -) 1 mg PO DAILY [facility] Heparin Sodium (Porcine) (Heparin -) 5,000 unit SQ TID [facility] Last Admin: 05/21/20 05:21 Dose: 5,000 unit Documented by: Azithromycin (Zithromax 500mg Ivpb (Pre-Docked)) 500 mg in 250 mls @ 250 mls/hr IVPB DAILY [facility] Insulin Aspart (Novolog Vial Sliding Scale -) 1 vial SQ ACHS [facility]; Protocol Last Admin: 05/20/20 22:14 Dose: Not Given Documented by: Lisinopril (Prinivil) 10 mg PO DAILY [facility] Lorazepam (Ativan -) 2 mg PO ONCE PRN PRN Reason: WITHDRAWAL(CONT SUBST) Prednisone (Deltasone -) 40 mg PO DAILY [facility] Last Admin: 05/20/20 10:59 Dose: 40 mg Documented by: Thiamine HCl (Vitamin B1 -) 100 mg PO DAILY [facility] - Objective Vital Signs: Vital Signs Temperature 98.0 F 05/20/20 23:00 Pulse Rate 98 H 05/20/20 23:00 Respiratory Rate 20 05/20/20 23:00 Blood Pressure 139/89 05/20/20 23:00 O2 Sat by Pulse Oximetry (%) 96 05/20/20 23:00 Constitutional: Yes: No Distress, Calm Eyes: Yes: Conjunctiva Clear, EOM Intact HENT: Yes: Atraumatic, Normocephalic Neck: Yes: Supple, Trachea Midline Cardiovascular: Yes: Regular Rate and Rhythm Respiratory: Yes: Diminished (no active wheezing posteriorly or laterally) Gastrointestinal: Yes: Soft (nt) Edema: No Peripheral Pulses WNL: Yes Neurological: Yes: Alert, Oriented ...Motor Strength: WNL Labs: CBC, BMP 05/20/20 00:18 05/20/20 11:40 INR, PTT INR 0.88 (0.83-1.09) 05/20/20 00:18 Laboratory Tests 05/20/20 05/21/20 05/21/20 00:18 05:27 05:27 WBC 13.0 H Hgb 13.2 Plt Count 223 Sodium 142 Potassium 3.8 Creatinine 1.1 Creatine Kinase 141 Troponin I < 0.02 05/21/20 05:27 WBC Hgb Plt Count Sodium Potassium Creatinine Creatine Kinase 70 Troponin I < 0.02 - ....Imaging EKG: Image Reviewed Assessment/Plan a/p: 54 m hx htn, hld, dm, cva, etoh abuse, cocaine use, smoking, copd, here with sob. sob, acute copd: -trops negx2, bnp wnl, no signs chf or acs -check echo -sxs seem related to copd, agree with steroids/nebs per pulm htn: -cont lisinopril -hold toprol given hx of cocaine use as well as copd -if bp becomes elevated would raise lisinopril or add norvasc next hld: -cont statin polysubstance abuse: -cessation discussed, smoking cessation pr tele
[2020-05-21] MEDS: INSULIN SLIDING SCALE (NOVOLOG) 1 VIAL SQ SCH ×2 (06:06→11:12)
[2020-05-21 06:33] LABS: BASO % 1.1 % (0-2.0); EOS % 0.9 % (0-4.5); HEMATOCRIT 39.6 % (35.4-49); HEMOGLOBIN 13.2 GM/dL (11.7-16.9); LYMPH % 19.4 % (8-40); MCH 33.2 pg (25.7-33.7); MCHC 33.2 g/dl (32.0-35.9); MEAN CELL VOLUME 99.8 fl (80-96); MEAN PLT VOLUME 7.8 fl (7.5-11.1); MONO % 7.1 % (3.8-10.2); NEUT % 71.5 % (42.8-82.8); PLATELET COUNT 223 K/MM3 (134-434); RBC 3.97 M/mm3 (4.00-5.60); RDW 13.5 % (11.9-15.9)
[2020-05-21 07:04] LABS: BILIRUBIN,TOTAL 0.8 mg/dL (0.2-1); BLOOD UREA NITROGEN 20.3 mg/dL (7-18); CALCIUM 8.2 mg/dL (8.5-10.1); CREATININE 1.1 mg/dL (0.55-1.3); MAGNESIUM 2.2 mg/dL (1.8-2.4); PHOSPHOROUS 3.3 mg/dL (2.5-4.9); POTASSIUM 3.8 mmol/L (3.5-5.1)
[2020-05-21] MEDS: predniSONE 20 MG TABLET (UD) PO SCH (09:26)
[2020-05-21] MEDS: ASPIRIN COATED 81 MG TABLET.EC PO SCH (09:26)
--- NOTE | 2020-05-21 09:26 | ECHO ---
Version: 1 Name: FLORIDA LLANES Exam: Adult Echocardiogram Study Date: 05/21/2020, 8:27 AM Age: 54 Years MMode/2D Measurements & Calculations ACS: 2.15 cm Ao root diam: 3.2 cm LVOT diam: 2.07 cm LA dimension: 3.2 cm Doppler Measurements & Calculations MV E max amor: 84.9 cm/sec Med E/e': 8.9 MV A max amor: 60.7 cm/sec Med Peak E' Amor: 9.5 cm/sec MV E/A: 1.40 Lat E/e': 10.5 Lat Peak E' Amor: 8.1 cm/sec Ao max P.4 mmHg Ao V2 max: 115.7 cm/sec TR max amor: 248.4 cm/sec TR max P.7 mmHg Left Ventricle Left ventricular systolic function is normal. Ejection Fraction = 55-60%. The transmitral spectral D oppler flow pattern is normal for age. Right Ventricle The right ventricle is normal in size and function. Atria Normal left and right atrial size and function. Mitral Valve The mitral valve is normal in structure and function. There is no mitral valve stenosis. There is tr faith mitral regurgitation. Tricuspid Valve The tricuspid valve is normal in structure and function. There is mild tricuspid regurgitation. Righ t ventricular systolic pressure is normal. Aortic Valve The aortic valve opens well. There is mild aortic sclerosis.;. No hemodynamically significant valvul ar aortic stenosis. Pulmonic Valve The pulmonic valve is not well seen, but is grossly normal. There is no pulmonic valvular stenosis. Great Vessels The aortic root is normal size. Pericardium/Pleura There is no pericardial effusion. Summary Statements Left ventricular systolic function is normal. Ejection Fraction = 55-60%. The right ventricle is normal in size and function. There is trace mitral regurgitation. There is mild tricuspid regurgitation. Right ventricular systolic pressure is normal. There is mild aortic sclerosis.; There is no pericardial effusion. MD Mendez *Varun 05/21/2020, 9:25 AM Ordering Physician: Harsh Ingram Referring Physician: [id number] Performed By: Jeanine Barker
[2020-05-21] MEDS ORDERED: ALBUTEROL SO4 HFA INHALER IH PRN (09:45)
[2020-05-21] MEDS ORDERED: LISINOPRIL 10 MG TABLET (FP) PO SCH (10:00)
[2020-05-21] MEDS ORDERED: FOLIC ACID 1 MG TABLET (FP) PO SCH (10:00)
[2020-05-21] MEDS ORDERED: THIAMINE HCL 100 MG TABLET (FP) PO SCH (10:00)
[2020-05-21] MEDS ORDERED: AZITHROMYCIN IVPB 500 MG/250 ML BAG IVPB SCH (10:00)
[2020-05-21 14:09] VITALS: BP 125/87; PULSE 86; TEMP 98.7
--- NOTE | 2020-05-21 14:16 | DS ---
Physical Exam: SUBJECTIVE: Patient seen and examined at bedside. No acute event OBJECTIVE: Vital Signs Period Temp Pulse Resp BP Sys/Cagle Pulse Ox Last 24 Hr 97.9 F-98.7 F 69-99 18-20 125-143/87-93 94-99 PHYSICAL EXAM GENERAL: AAOx3, in no acute distress HEENT: NCAT, PERRLA, EOMI, sclera anicteric, conjunctiva clear, oropharynx clear w/o exudates. MMM. NECK: Normal ROM, supple, no lymphadenopathy, JVD, or masses LUNGS: CTABL no wheezes/ rhonchi/ rales. No distress, speaks in full sentences. No increased work of breathing. HEART: RRR, normal S1 S2, no M/R/G, peripheral pulses 2+ and equal b/l ABDOMEN: Soft, NTND, + BS. No guarding or rebound. No hepatomegaly or splenomegaly. MSK: ROM WNL EXTREMITIES: Normal inspection. No peripheral edema. No clubbing or cyanosis. NEUROLOGICAL: CN II-XII intact. Normal speech, normal gait, no focal sensorimotor deficits. SKIN: Warm, Dry, normal turgor, no rashes or lesions noted LABS Laboratory Results - last 24 hr CBC, BMP 05/21/20 05:27 05/21/20 05:27 05/20/20 05/20/20 05/21/20 02:09 19:34 05:27 WBC 13.0 H RBC 3.97 L Hgb 13.2 Hct 39.6 MCV 99.8 H MCH 33.2 MCHC 33.2 RDW 13.5 Plt Count 223 MPV 7.8 Absolute Neuts (auto) 9.3 H Neutrophils % 71.5 D Lymphocytes % 19.4 D Monocytes % 7.1 Eosinophils % 0.9 D Basophils % 1.1 Nucleated RBC % 0 Sodium Potassium Chloride Carbon Dioxide Anion Gap BUN Creatinine Est GFR (CKD-EPI)AfAm Est GFR (CKD-EPI)NonAf POC Glucometer 222 Random Glucose Calcium Phosphorus Magnesium Total Bilirubin AST ALT Alkaline Phosphatase Creatine Kinase Troponin I Total Protein Albumin COVID-19 (NICKO) Not detected 05/21/20 05/21/20 05:27 05:27 WBC RBC Hgb Hct MCV MCH MCHC RDW Plt Count MPV Absolute Neuts (auto) Neutrophils % Lymphocytes % Monocytes % Eosinophils % Basophils % Nucleated RBC % Sodium 142 Potassium 3.8 Chloride 111 H Carbon Dioxide 24 Anion Gap 7 L BUN 20.3 H Creatinine 1.1 Est GFR (CKD-EPI)AfAm 86.52 Est GFR (CKD-EPI)NonAf 74.65 POC Glucometer Random Glucose 108 H Calcium 8.2 L Phosphorus 3.3 Magnesium 2.2 Total Bilirubin 0.8 AST 16 ALT 31 Alkaline Phosphatase 57 Creatine Kinase 70 Troponin I < 0.02 Total Protein 6.0 L Albumin 3.0 L COVID-19 (NICKO) HOSPITAL COURSE: 54M w/ PMX of HTN, HLD, IDDM, 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 Admitted for right-sided chest pain and COPD exacerbation. Patient had negative troponin levels x3. Patient was started on ASA 81 mg daily and cardiology was consulted. Cardiology stated the pain was likely from COPD and to continue steroids/nebs. Echo: Left ventricle systolic function is normal. EF= 55-60%. The right ventricle is normal in size and function. There is trace mitral and tricuspid regurgitation. Right ventricle systolic pressure is normal. There is mild aortic sclerosis. No pericardial effusion. . Patient was on prednisone 40 mg daily, azithrymycin, bronchdilators and nebulizers during his stay as per pulm recommendations. O2 saturations were kept above 90% and glucose was monitored since the patient was on steroids. For the alcohol use the patient had Librium 25 mg Q4 PRN ordered for HR > 100 and systolic BP > 140 on board to prevent seizures and patient was monitored for s/s of withdrawals. Patient had elevated Cr at admission and a renal US showed normal kidneys with no evidence of hydronephrosis. Patient was on a diabetic diet and received Heparin SQ for DVT prophylaxis. Patient was discharged to [facility] with cardiology and pulm follow up outpatient. Date of Admission:05/20/20 -05/19/20-normal sinus rhythm, normal EKG -05/20/20-some congestive changes -05/20/20- US renal -morphologiccally normal kidneys with no evidence of hy dronephrosis or acute pathology -05/21/2020-Left ventricle systolic function is normal. EF= 55-60%. The right ventricle is normal in size and function. There is trace mitral and tricuspid regurgitation. Right ventricle systolic pressure is normal. There is mild aortic sclerosis. No pericardial effusion. Date of Discharge: 05/21/20 Minutes to complete discharge: 36 Discharge Summary Problems reviewed: Yes Reason For Visit: CHEST PAIN Current Active Problems Chest pain (Acute) Cough (Acute) Emphysema of lung (Acute) Condition: Stable - Instructions Diet, Activity, Other Instructions: Your visit: You were admitted to the hospital for chest pain. We found no abnormalities for your heart. You were treated with antibiotics, steroids and inhalers with improvement of your symptoms. Medications changes: -Continue to take all other home medications as prescribed. Follow up: -Please follow up with your Pulmologist, Dr. Bundy, in 1 week. - Please follow-up with your paint mixer, Dr. Shelby, in 2 weeks. - Visit with your Primary Care Provider in 2 weeks. If you do not have a primary care provider you may make an appointment with Dr. Josehp at the [facility] clinic located at [address] [place] [address] ([phone]). Additional Instructions: -You are being discharged to your home. -Please avoid drinking alcohol or using drugs. -Please return to the Emergency Department if you experience worsening pain, fevers, chills, shortness of breath, or chest pain, or if you experience any worsening, new or concerning symptoms. Referrals: James Shelby MD [Staff Physician] - Jose Luis Bundy MD, MD [Staff Physician] - Disposition: HOME - Home Medications Comprehensive Discharge Medication List: Ambulatory Orders Chlordiazepoxide [Librium -] 25 mg PO DAILY 05/20/20 Lisinopril 10 mg PO DAILY 05/20/20 Metformin HCl [Glucophage] 500 mg PO BID 05/20/20 Metoprolol Succinate 50 mg PO DAILY 05/20/20 Rosuvastatin [Crestor -] 5 mg PO DAILY 05/20/20 This patient is new to me today: No Emergency Visit: No Critical Care patient: No - Discharge Referral Referred to [facility] Med [facility] No ATTENDING PHYSICIAN STATEMENT I saw and evaluated the patient. I reviewed the resident's note and discussed the case with the resident. I agree with the resident's findings and plan as documented. SUBJECTIVE: OBJECTIVE: ASSESSMENT AND PLAN:
--- NOTE | 2020-05-21 15:47 | PN ---
Teaching Attending Note Name of Resident: Maicol Schmidt ATTENDING PHYSICIAN STATEMENT I saw and evaluated the patient. I reviewed the resident's note and discussed the case with the resident. I agree with the resident's findings and plan as documented. SUBJECTIVE: Patient is comfortable today with NAD. feels better and wants to go to rehab. OBJECTIVE: Vital Signs Temperature 98.7 F 05/21/20 14:07 Pulse Rate 86 05/21/20 14:07 Respiratory Rate 20 05/21/20 14:07 Blood Pressure 125/87 05/21/20 14:07 O2 Sat by Pulse Oximetry (%) 97 05/21/20 14:07 PE: comofortable with NAd rest per resident's note CBCD WBC 13.0 K/mm3 (4.0-10.0) H 05/21/20 05:27 RBC 3.97 M/mm3 (4.00-5.60) L 05/21/20 05:27 Hgb 13.2 GM/dL (11.7-16.9) 05/21/20 05:27 Hct 39.6 % (35.4-49) 05/21/20 05:27 MCV 99.8 fl (80-96) H 05/21/20 05:27 MCHC 33.2 g/dl (32.0-35.9) 05/21/20 05:27 RDW 13.5 % (11.9-15.9) 05/21/20 05:27 Plt Count 223 K/MM3 (134-434) 05/21/20 05:27 MPV 7.8 fl (7.5-11.1) 05/21/20 05:27 CMP Sodium 142 mmol/L (136-145) 05/21/20 05:27 Potassium 3.8 mmol/L (3.5-5.1) 05/21/20 05:27 Chloride 111 mmol/L (98-107) H 05/21/20 05:27 Carbon Dioxide 24 mmol/L (21-32) 05/21/20 05:27 Anion Gap 7 MMOL/L (8-16) L 05/21/20 05:27 BUN 20.3 mg/dL (7-18) H 05/21/20 05:27 Creatinine 1.1 mg/dL (0.55-1.3) 05/21/20 05:27 Random Glucose 108 mg/dL (74-106) H 05/21/20 05:27 Calcium 8.2 mg/dL (8.5-10.1) L 05/21/20 05:27 Total Bilirubin 0.8 mg/dL (0.2-1) 05/21/20 05:27 AST 16 U/L (15-37) 05/21/20 05:27 ALT 31 U/L (13-61) 05/21/20 05:27 Alkaline Phosphatase 57 U/L (45-117) 05/21/20 05:27 Total Protein 6.0 g/dl (6.4-8.2) L 05/21/20 05:27 Albumin 3.0 g/dl (3.4-5.0) L 05/21/20 05:27 CARDIAC ENZYMES Creatine Kinase 70 U/L (26-308) 05/21/20 05:27 Troponin I < 0.02 ng/ml (0.00-0.05) 05/21/20 05:27 Current Medications Generic Name Dose Route Start Last Admin Trade Name Freq PRN Reason Stop Dose Admin Albuterol Sulfate 2 puff 05/21/20 09:45 Ventolin Hfa Inhaler - IH Q4H PRN SHORTNESS OF BREATH Aspirin 81 mg 05/20/20 10:00 05/21/20 09:26 Ecotrin - PO 81 mg DAILY MANOLO Administration Chlordiazepoxide HCl 25 mg 05/20/20 14:59 05/20/20 19:46 Librium - PO 25 mg Q4H PRN Administration WITHDRAWAL(CONT SUBST) Folic Acid 1 mg 05/21/20 10:00 05/21/20 09:26 Folic Acid - PO 1 mg DAILY MANOLO Administration Heparin Sodium (Porcine) 5,000 unit 05/20/20 06:00 05/21/20 05:21 Heparin - SQ 5,000 unit TID MANOLO Administration Azithromycin 500 mg in 250 mls @ 250 mls/hr 05/21/20 10:00 05/21/20 09:31 Zithromax 500mg Ivpb (Pre-Docked) IVPB 250 mls/hr DAILY MANOLO Administration Insulin Aspart 1 vial 05/20/20 07:00 05/21/20 11:12 Novolog Vial Sliding Scale - SQ 4 units ACHS MANOLO Administration Protocol Lisinopril 10 mg 05/21/20 10:00 05/21/20 09:26 Prinivil PO 10 mg DAILY MANOLO Administration Lorazepam 2 mg 05/20/20 10:00 Ativan - PO ONCE PRN WITHDRAWAL(CONT SUBST) Prednisone 40 mg 05/20/20 10:00 05/21/20 09:26 Deltasone - PO 40 mg DAILY MANOLO Administration Thiamine HCl 100 mg 05/21/20 10:00 05/21/20 09:26 Vitamin B1 - PO 100 mg DAILY MANOLO Administration Home Medications Medication Instructions Recorded Chlordiazepoxide [Librium -] 25 mg PO DAILY 05/20/20 Lisinopril 10 mg PO DAILY 05/20/20 Metformin HCl [Glucophage] 500 mg PO BID 05/20/20 Metoprolol Succinate 50 mg PO DAILY 05/20/20 Rosuvastatin [Crestor -] 5 mg PO DAILY 05/20/20 CXR: some congestive changes ASSESSMENT AND PLAN: This patient is a 54yom with PMhx of HTN, HLD, IDDM (metform + basalgar 10U HS), 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 and was found to have acute copd exacerbation. #Acute COPD exacerbation: on steroid, albuterol continue , will continue with 5 day of oral #Acute congestive changes: echo show: EJF of 50-60%, TRACE mr, MILD TR, MILD AORTIC SCLEROSIS. OTHERWISE NORMAL. #Alcohol dependency :not in withdrawal, on thiamine, FA continue, ativan prn for possible withdrawel #Polysubstance dependency: abstinence #NORMAN : monitor in the setting of being diabetic, ordered A1c #IDDM: continue home meds, A1c IS 5.8 #Hx of stroke with residual (right anesthesia tech weakness) #Covid Pending #Hx of hepatitis C(treated with Irvinoni) # electrolytes STABLE DVT Px: hepain sq
--- NOTE | 2020-05-21 16:09 | PN ---
Progress Note (short form) - Note Progress Note: Resting in NAD. Reports feeling better. No acute events overnight. Intake & Output 05/18/20 05/19/20 05/20/20 05/21/20 23:59 23:59 23:59 23:59 Intake Total 240 120 Balance 240 120 Weight 220 lb 181 lb 6.4 oz Last Vital Signs Temp Pulse Resp BP Pulse Ox 98.7 F 86 20 125/87 97 05/21/20 14:07 05/21/20 14:07 05/21/20 14:07 05/21/20 14:07 05/21/20 14:07 Active Medications Albuterol Sulfate (Ventolin Hfa Inhaler -) 2 puff IH Q4H PRN PRN Reason: SHORTNESS OF BREATH Aspirin (Ecotrin -) 81 mg PO DAILY [facility] Last Admin: 05/21/20 09:26 Dose: 81 mg Documented by: Chlordiazepoxide HCl (Librium -) 25 mg PO Q4H PRN PRN Reason: WITHDRAWAL(CONT SUBST) Last Admin: 05/20/20 19:46 Dose: 25 mg Documented by: Folic Acid (Folic Acid -) 1 mg PO DAILY [facility] Last Admin: 05/21/20 09:26 Dose: 1 mg Documented by: Heparin Sodium (Porcine) (Heparin -) 5,000 unit SQ TID [facility] Last Admin: 05/21/20 05:21 Dose: 5,000 unit Documented by: Azithromycin (Zithromax 500mg Ivpb (Pre-Docked)) 500 mg in 250 mls @ 250 mls/hr IVPB DAILY [facility] Last Admin: 05/21/20 09:31 Dose: 250 mls/hr Documented by: Insulin Aspart (Novolog Vial Sliding Scale -) 1 vial SQ ACHS [facility]; Protocol Last Admin: 05/21/20 11:12 Dose: 4 units Documented by: Lisinopril (Prinivil) 10 mg PO DAILY [facility] Last Admin: 05/21/20 09:26 Dose: 10 mg Documented by: Lorazepam (Ativan -) 2 mg PO ONCE PRN PRN Reason: WITHDRAWAL(CONT SUBST) Prednisone (Deltasone -) 40 mg PO DAILY [facility] Last Admin: 05/21/20 09:26 Dose: 40 mg Documented by: Thiamine HCl (Vitamin B1 -) 100 mg PO DAILY [facility] Last Admin: 09/11/20 09:26 Dose: 100 mg Documented by: GENERAL: AAOx3, in no acute distress HEENT: NCAT, PERRLA, EOMI, sclera anicteric, conjunctiva clear, oropharynx clear w/o exudates. MMM. NECK: Normal ROM, supple, no lymphadenopathy, JVD, or masses LUNGS: No wheezes, few scattered rhonchi HEART: RRR, normal S1 S2, no M/R/G, peripheral pulses 2+ and equal b/l ABDOMEN: Soft, NTND, + BS. No guarding or rebound. No hepatomegaly or splenomegaly. EXTREMITIES: Normal inspection. No peripheral edema. No clubbing or cyanosis. NEUROLOGICAL: Nnn-focal SKIN: Warm, Dry, normal turgor, no rashes or lesions noted Laboratory Results - last 24 hr 05/20/20 05/20/20 05/21/20 02:09 19:34 05:27 WBC 13.0 H RBC 3.97 L Hgb 13.2 Hct 39.6 MCV 99.8 H MCH 33.2 MCHC 33.2 RDW 13.5 Plt Count 223 MPV 7.8 Absolute Neuts (auto) 9.3 H Neutrophils % 71.5 D Lymphocytes % 19.4 D Monocytes % 7.1 Eosinophils % 0.9 D Basophils % 1.1 Nucleated RBC % 0 Sodium Potassium Chloride Carbon Dioxide Anion Gap BUN Creatinine Est GFR (CKD-EPI)AfAm Est GFR (CKD-EPI)NonAf POC Glucometer 222 Random Glucose Calcium Phosphorus Magnesium Total Bilirubin AST ALT Alkaline Phosphatase Creatine Kinase Troponin I Total Protein Albumin COVID-19 (NICKO) Not detected 05/21/20 05/21/20 05:27 05:27 WBC RBC Hgb Hct MCV MCH MCHC RDW Plt Count MPV Absolute Neuts (auto) Neutrophils % Lymphocytes % Monocytes % Eosinophils % Basophils % Nucleated RBC % Sodium 142 Potassium 3.8 Chloride 111 H Carbon Dioxide 24 Anion Gap 7 L BUN 20.3 H Creatinine 1.1 Est GFR (CKD-EPI)AfAm 86.52 Est GFR (CKD-EPI)NonAf 74.65 POC Glucometer Random Glucose 108 H Calcium 8.2 L Phosphorus 3.3 Magnesium 2.2 Total Bilirubin 0.8 AST 16 ALT 31 Alkaline Phosphatase 57 Creatine Kinase 70 Troponin I < 0.02 Total Protein 6.0 L Albumin 3.0 L COVID-19 (NICKO) Assessment/Plan Acute COPD Exacerbation Polysubstance Abuse Hep C s/p tx HTN DM Hyperlipidemia Smoker - Can change to Prednisone - inhaled bronchodilators - smoking cessation discussed - No Pulmonary contraindication for DC to Rehab / Home Dr Ponce
== END 2020-05-21 16:10 | disposition home or self-care (01) | DRG 140 ==
LOC: JER 23:30 → JERBED 05-20 01:31 → OBSVTOIN 05-20 05:14 → J4S 05-20 22:43
PROVIDERS: ADMIT Internal Medicine; ATTEND Internal Medicine
DX: J43.9 Emphysema, unspecified (principal); E78.00 Pure hypercholesterolemia, unspecified; E11.9 Type 2 diabetes mellitus without complications; F10.20 Alcohol dependence, uncomplicated; E88.09 Other disorders of plasma-protein metabolism, not elsewhere classified; F14.20 Cocaine dependence, uncomplicated; F13.20 Sedative, hypnotic or anxiolytic dependence, uncomplicated; R07.89 Other chest pain; I10 Essential (primary) hypertension; E46 Unspecified protein-calorie malnutrition; I69.351 Hemiplegia and hemiparesis following cerebral infarction affecting right dominant side; Z68.25 Body mass index [BMI] 25.0-25.9, adult
CPT/HCPCS: 36415; 71045-TC-FY; 76775-TC; 80048; 80053; 80061; 82550; 82803; 82962; 83036; 83721; 83735; 83880; 84100; 84484; 85025; 85610; 85730; 87040; 93005; 93010; 93306-TC; 97116-GP; 97161-GP; 99285-25; G0378; J1644; U0003

== ENCOUNTER 2020-05-21 16:54 | Inpatient (IN) | payer OTHER ==
[2020-05-21 21:58] VITALS: BMI 25.0
--- NOTE | 2020-05-21 22:51 | HP ---
CIWA Score - Admission Criteria [facility] Guidelines: Admission for Medically Managed Detox: Requires at least one of the followin. CIWA greater than 12 2. Seizures within the past 24 hours 3. Delirium tremens within the past 24 hours 4. Hallucinations within the past 24 hours 5. Acute intervention needed for co occurring medical disorder 6. Acute intervention needed for co occurring psychiatric disorder 7. Severe withdrawal that cannot be handled at a lower level of care (continued vomiting, continued diarrhea, abnormal vital signs) requiring intravenous medication and/or fluids 8. Admitting History and Physical - Past Medical History Cardiovascular: Yes: HTN, Hyperlipdemia Endocrine: Yes: Diabetes Mellitus - Smoking History Smoking history: Never smoked Have you smoked in the past 12 months: No Admission ROS [facility] Chief Complaint: Seeking admission to Rehab. Allergies/Adverse Reactions: Allergies Allergy/AdvReac Type Severity Reaction Status Date / Time No Known Allergies Allergy Verified 05/19/20 22:17 History of Present Illness: 54 years old male with a history of alcohol dependence is seeking admission to Rehab. This is his first admission to [facility] inpatient Rehab. He has medical hist ory of hypertension, emphysema, Diabetes Type 2, hyperlipidemia, CVA, psych. history of depression, anxiety and he denies suicidal ideation at this time. He is unemployed, homeless and denies any pending legal issues. Exam Limitations: No Limitations - Ebola screening Have you traveled outside of the country in the last 21 days: No Have you had contact with anyone from an Ebola affected area: No Have you been sick,other than usual withdrawal symptoms: No Do you have a fever: No - Review of Systems Constitutional: No Symptoms Reported EENT: reports: No Symptoms Reported Respiratory: reports: No Symptoms reported Cardiac: reports: No Symptoms Reported GI: reports: No Symptoms Reported : reports: No Symptoms Reported Musculoskeletal: reports: No Symptoms Reported Integumentary: reports: No Symptoms Reported Neuro: reports: No Symptoms reported Endocrine: reports: No Symptoms Reported Hematology: reports: No Symptoms Reported Psychiatric: reports: No Sypmtoms Reported, Mood/Affect Appropiate, Orientated x3 Other Systems: Reviewed and Negative Patient History - Patient Medical History Hx Anemia: No Hx Asthma: No Hx Chronic Obstructive Pulmonary Disease (COPD): Yes (EMPHYSEMA) Hx Cancer: No Hx Cardiac Disorders: No Hx Congestive Heart Failure: No Hx Hypertension: Yes (LISINOPRIL, METOPROLOL) Hx Hypercholesterolemia: Yes Hx Pacemaker: No HX Cerebrovascular Accident: Yes Hx Seizures: No Hx Dementia: No Hx Diabetes: Yes (METFORMIN) Hx Gastrointestinal Disorders: No Hx Liver Disease: No Hx Genitourinary Disorders: No Hx Sexually Transmitted Disorders: No Hx Renal Disease (ESRD): No Hx Thyroid Disease: No Hx Human Immunodeficiency Virus (HIV): No (NEGATIVE ) Hx Hepatitis C: No Hx Depression: No Hx Suicide Attempt: No (DENIES SUICIDAL IDEATION AT THIS TIME) Hx Bipolar Disorder: No Hx Schizophrenia: No - Patient Surgical History Past Surgical History: Yes Hx Neurologic Surgery: No Hx Cataract Extraction: No Hx Cardiac Surgery: No Hx Lung Surgery: No Hx Abdominal Surgery: No Hx Orthopedic Surgery: Yes (Knee surgery 194) Other Surgical History: Nose surgery 1997, Jaw repair - PPD History Previous Implant?: No Documented Results: Negative w/o proof Implanted On Prior [facility] Admission?: No PPD to be Administered?: Yes - Reproductive History Patient is a Female of Child Bearing Age (11 -55 yrs old): No (Male) - Smoking Cessation Smoking history: Current every day smoker Have you smoked in the past 12 months: Yes Aproximately how many cigarettes per day: 10 Hx Chewing Tobacco Use: No Initiated information on smoking cessation: Yes 'Breaking Loose' booklet given: 05/21/20 - Substance & Tx. History Hx Alcohol Use: Yes Hx Substance Use: No Substance Use Type: Alcohol, Cocaine Hx Substance Use Treatment: Yes ([facility]) - Substances abused Alcohol Substance route: Oral Frequency: Daily Amount used: 6-8 beers Age of first use: 12 Date of last use: 05/19/20 Admission Physical Exam S - Vital Signs Vital Signs: Vital Signs - 24 hr 05/21/20 21:56 Temperature 97.9 F Pulse Rate 78 Respiratory 19 Rate Blood Pressure 146/81 - Physical General Appearance: Yes: Within Normal Limits HEENTM: Yes: Within Normal Limits Respiratory: Yes: Lungs Clear, Normal Breath Sounds, No Respiratory Distress Neck: Yes: Within Normal Limits Breast: Yes: Breast Exam Deferred Cardiology: Yes: Regular Rhythm, Regular Rate Abdominal: Yes: Within Normal Limits Genitourinary: Yes: Within Normal Limits Back: Yes: Normal Inspection Musculoskeletal: Yes: Within Normal Limits Extremities: Yes: Within Normal Limits Neurological: Yes: Within Normal Limits Integumentary: Yes: Within Normal Limits Lymphatic: Yes: Within Normal Limits - Diagnostic (1) CVA (cerebral vascular accident) Current Visit: Yes Status: Chronic Qualifiers: Precerebral and cerebral artery: unspecified precerebral artery (2) Hypertension Current Visit: Yes Status: Chronic Qualifiers: Hypertension type: essential hypertension Qualified Code(s): I10 - Essential (primary) hypertension (3) Type 2 diabetes mellitus Current Visit: Yes Status: Chronic (4) Hyperlipidemia Current Visit: Yes Status: Chronic (5) IVDU (intravenous drug user) Current Visit: Yes Status: Chronic (6) Nicotine dependence Current Visit: Yes Status: Acute (7) Emphysema of lung Current Visit: Yes Status: Chronic Qualifiers: Emphysema type: unspecified Qualified Code(s): J43.9 - Emphysema, un specified Cleared for Admission [facility] - Detox or Rehab [facility] Level of Care: Observation Bed Claeared for Rehab Admission: Yes Breathalyzer - Breathalyzer Breathalyzer: 0 Urine Drug Screen - Test Device Lot number: [id number] Expiration date: 04/13/22 - Control Is test valid?: Yes - Results Drug screen NEGATIVE: No Urine drug screen results: BZO-Benzodiazepines Inpatient Rehab Admission - Rehab Decision to Admit Inpatient rehab admission?: Yes - Initial Determination Are CD services needed?: No Free of communicable disease: Yes Not in need of hospitalization: Yes - Rehab Admission Criteria Previous failed treatment: Yes Poor recovery environment: Yes Comorbidities: Yes Lacks judgement: No Patient is meeting Inpatient Rehab admission criteria:: Yes
[2020-05-21] MEDS ORDERED: MAGNESIUM CITRATE 300 ML BOTTLE PO PRN (23:10)
[2020-05-21] MEDS ORDERED: MAG HYDROX/AL HYDROX/SIMETH 30 ML UNIT-DOSE CUP PO PRN (23:10)
[2020-05-21] MEDS ORDERED: NICOTINE POLACRILEX 2 MG GUM BC PRN (23:10)
[2020-05-21] MEDS ORDERED: MAGNESIUM HYDROX 2400MG/30ML ORAL SUSPENSION 30 ML CUP PO PRN (23:10)
[2020-05-21] MEDS ORDERED: LOPERAMIDE HCL 2 MG CAPSULE PO PRN (23:10)
[2020-05-21] MEDS ORDERED: P-EPHED 60MG/TRIPROLIDI 2.5MG TABLET PO PRN (23:10)
[2020-05-21] MEDS ORDERED: ACETAMINOPHEN 325 MG TABLET (FP) PO PRN (23:10)
[2020-05-21] MEDS ORDERED: guaiFENesin 200 MG/10 ML 10 ML UNIT-DOSE CUPS PO PRN (23:10)
[2020-05-22] MEDS ORDERED: TUBERCULIN PPD 5 TU/0.1ML VIAL ID ONE (00:12)
[2020-05-22] MEDS: MELATONIN 5 MG TABLETS PO SCH ×2 (01:25→21:27)
[2020-05-22] MEDS: metFORMIN HCL 500 MG TABLET (FP) PO SCH ×2 (06:27→16:28)
[2020-05-22] MEDS: INSULIN SLIDING SCALE (NOVOLOG) 1 VIAL SQ SCH ×4 (06:28→21:27)
[2020-05-22 09:29] LABS: HEMATOCRIT 39.2 % (35.4-49); HEMOGLOBIN 13.5 GM/dL (11.7-16.9); MCH 34.8 pg (25.7-33.7); MCHC 34.4 g/dl (32.0-35.9); MEAN CELL VOLUME 101.2 fl (80-96); MEAN PLT VOLUME 8.2 fl (7.5-11.1); PLATELET COUNT 214 K/MM3 (134-434); RBC 3.87 M/mm3 (4.00-5.60); RDW 13.8 % (11.9-15.9); WHITE BLOOD COUNT 10.3 K/mm3 (4.0-10.0)
[2020-05-22 09:48] LABS: POTASSIUM 4.6 mmol/L (3.5-5.1)
[2020-05-22 10:03] LABS: ALBUMIN 3.2 g/dl (3.4-5.0); BILIRUBIN,TOTAL 0.6 mg/dL (0.2-1); BLOOD UREA NITROGEN 21.2 mg/dL (7-18); CALCIUM 8.6 mg/dL (8.5-10.1); CREATININE 1.1 mg/dL (0.55-1.3); TOT PROT 6.3 g/dl (6.4-8.2)
[2020-05-22] MEDS: NICOTINE 14 MG/24 HOURS TOPICAL PATCH TD SCH (10:25)
[2020-05-22] MEDS: PRENATAL VITAMINS W/ FOLIC ACID TABLET (FP) PO SCH (10:25)
[2020-05-22] MEDS: LISINOPRIL 10 MG TABLET (FP) PO SCH (10:25)
[2020-05-22 10:50] LABS: SICKLE CELL SCREEN NEGATIVE (NEGATIVE)
[2020-05-22] MEDS: ALBUTEROL SO4 HFA INHALER IH PRN ×2 (11:28→18:20)
[2020-05-22] MEDS: ROSUVASTATIN CA 5 MG TABLET (FP) PO SCH (11:29)
[2020-05-22] MEDS: IBUPROFEN 400 MG TABLET (FP) PO PRN (19:16)
[2020-05-22] MEDS: THIAMINE HCL 100 MG TABLET (FP) PO SCH (21:27)
[2020-05-22 22:18] LABS: PH,URINE 6.5 (5.0-8.0); URINE APPEARANCE CLEAR; URINE BILIRUBIN NEGATIVE (NEGATIVE); URINE COLOR YELLOW; URINE GLUCOSE (UA) NEGATIVE (NEGATIVE); URINE KETONE NEGATIVE (NEGATIVE); URINE LEUK ESTERASE NEGATIVE (NEGATIVE); URINE NITRITE NEGATIVE (NEGATIVE); URINE PROTEIN TRACE (NEGATIVE); URINE UROBILINOGEN 0.2 mg/dL (0.2-1.0)
[2020-05-23] MEDS: metFORMIN HCL 500 MG TABLET (FP) PO SCH ×2 (06:51→16:26)
[2020-05-23] MEDS: INSULIN SLIDING SCALE (NOVOLOG) 1 VIAL SQ SCH ×4 (06:52→21:39)
[2020-05-23] MEDS: PRENATAL VITAMINS W/ FOLIC ACID TABLET (FP) PO SCH (10:39)
[2020-05-23] MEDS: LISINOPRIL 10 MG TABLET (FP) PO SCH (10:39)
[2020-05-23] MEDS: ROSUVASTATIN CA 5 MG TABLET (FP) PO SCH (10:40)
[2020-05-23] MEDS: NICOTINE 14 MG/24 HOURS TOPICAL PATCH TD SCH (10:40)
[2020-05-23] MEDS: IBUPROFEN 400 MG TABLET (FP) PO PRN (17:29)
[2020-05-23] MEDS: THIAMINE HCL 100 MG TABLET (FP) PO SCH (21:39)
[2020-05-23] MEDS: MELATONIN 5 MG TABLETS PO SCH (21:39)
[2020-05-24] MEDS: metFORMIN HCL 500 MG TABLET (FP) PO SCH (06:39)
[2020-05-24] MEDS: INSULIN SLIDING SCALE (NOVOLOG) 1 VIAL SQ SCH (06:40)
[2020-05-24 07:50] VITALS: BP 127/78; PULSE 66; TEMP 98.1
[2020-05-24] MEDS: LISINOPRIL 10 MG TABLET (FP) PO SCH (10:49)
[2020-05-24] MEDS: PRENATAL VITAMINS W/ FOLIC ACID TABLET (FP) PO SCH (10:49)
[2020-05-24] MEDS: NICOTINE 14 MG/24 HOURS TOPICAL PATCH TD SCH (10:50)
--- NOTE | 2020-05-24 12:24 | DS ---
[facility] Rehab Discharge Summary - [facility] Rehab Discharge Summary Admission Date: 05/21/20 Discharge Date: 05/24/20 - History Present History: Alcohol dependence Additional Comments: Pt was seen at the nursing station all dressed and states he is discharging, Pt declined to continue with treatment and declined to be seen by staff as pt had not had first encounter with this scientific technical writer or assigned counselor, Celitongrajesh Werner. Pt insists he is ready to leave [facility] and no ready to have any further discussions. States he will be going back to see his doctor in [place] and has his doctors up [place]. Pt is from [facility]. Pertinent Past History: HTN Type 2 DM HLD COPD CVA - Discharge Physical Exam Vital Signs: Vital Signs Temperature 98.1 F 05/24/20 07:49 Pulse Rate 66 05/24/20 07:49 Respiratory Rate 18 05/24/20 07:49 Blood Pressure 127/78 05/24/20 07:49 O2 Sat by Pulse Oximetry (%) 98 05/24/20 07:49 General:alert o x 3 Resp:nad MSK:oob ambulating with steady gait; Active FROM, all limbs. Pertinent Admission Physical Exam Findings: Laboratory Tests 05/22/20 05/22/20 05/22/20 06:26 07:40 07:40 WBC 10.3 H RBC 3.87 L Hgb 13.5 Hct 39.2 MCV 101.2 H MCH 34.8 H MCHC 34.4 RDW 13.8 Plt Count 214 MPV 8.2 Sickle Cell Screen Negative Sodium 143 Potassium 4.6 Chloride 111 H Carbon Dioxide 25 Anion Gap 7 L BUN 21.2 H Creatinine 1.1 Est GFR (CKD-EPI)AfAm 86.52 Est GFR (CKD-EPI)NonAf 74.65 POC Glucometer 96 Random Glucose 92 Calcium 8.6 Total Bilirubin 0.6 AST 25 ALT 43 Alkaline Phosphatase 54 Total Protein 6.3 L Albumin 3.2 L Urine Color Urine Appearance Urine pH Ur Specific [place] Urine Protein Urine Glucose (UA) Urine Ketones Urine Blood Urine Nitrite Urine Bilirubin Urine Urobilinogen Ur Leukocyte Esterase Syphilis Serology 05/22/20 05/22/20 05/22/20 07:40 11:31 16:26 WBC RBC Hgb Hct MCV MCH MCHC RDW Plt Count MPV Sickle Cell Screen Sodium Potassium Chloride Carbon Dioxide Anion Gap BUN Creatinine Est GFR (CKD-EPI)AfAm Est GFR (CKD-EPI)NonAf POC Glucometer 126 160 Random Glucose Calcium Total Bilirubin AST ALT Alkaline Phosphatase Total Protein Albumin Urine Color Urine Appearance Urine pH Ur Specific [place] Urine Protein Urine Glucose (UA) Urine Ketones Urine Blood Urine Nitrite Urine Bilirubin Urine Urobilinogen Ur Leukocyte Esterase Syphilis Serology Non-reactive 05/22/20 05/22/20 05/23/20 20:09 22:00 06:51 WBC RBC Hgb Hct MCV MCH MCHC RDW Plt Count MPV Sickle Cell Screen Sodium Potassium Chloride Carbon Dioxide Anion Gap BUN Creatinine Est GFR (CKD-EPI)AfAm Est GFR (CKD-EPI)NonAf POC Glucometer 120 119 Random Glucose Calcium Total Bilirubin AST ALT Alkaline Phosphatase Total Protein Albumin Urine Color Yellow Urine Appearance Clear Urine pH 6.5 Ur Specific [place] 1.015 Urine Protein Trace Urine Glucose (UA) Negative Urine Ketones Negative Urine Blood Negative Urine Nitrite Negative Urine Bilirubin Negative Urine Urobilinogen 0.2 Ur Leukocyte Esterase Negative Syphilis Serology 05/23/20 05/23/20 05/23/20 11:04 16:16 20:57 WBC RBC Hgb Hct MCV MCH MCHC RDW Plt Count MPV Sickle Cell Screen Sodium Potassium Chloride Carbon Dioxide Anion Gap BUN Creatinine Est GFR (CKD-EPI)AfAm Est GFR (CKD-EPI)NonAf POC Glucometer 155 139 154 Random Glucose Calcium Total Bilirubin AST ALT Alkaline Phosphatase Total Protein Albumin Urine Color Urine Appearance Urine pH Ur Specific [place] Urine Protein Urine Glucose (UA) Urine Ketones Urine Blood Urine Nitrite Urine Bilirubin Urine Urobilinogen Ur Leukocyte Esterase Syphilis Serology 05/24/20 06:38 WBC RBC Hgb Hct MCV MCH MCHC RDW Plt Count MPV Sickle Cell Screen Sodium Potassium Chloride Carbon Dioxide Anion Gap BUN Creatinine Est GFR (CKD-EPI)AfAm Est GFR (CKD-EPI)NonAf POC Glucometer 115 Random Glucose Calcium Total Bilirubin AST ALT Alkaline Phosphatase Total Protein Albumin Urine Color Urine Appearance Urine pH Ur Specific [place] Urine Protein Urine Glucose (UA) Urine Ketones Urine Blood Urine Nitrite Urine Bilirubin Urine Urobilinogen Ur Leukocyte Esterase Syphilis Serology - Treatment Discharge Condition: Discharge condition good Hospital Course: Pt is a 54 y/o male with a hx of AUD, was admitted on 05/21/20 and requested to leave today AMA for personal reasons. Pt was evaluated for Chest pain at [facility] on 05/19/20(05/20/20 @ the ER) to 05/21/20 before transfer back to [facility] on 05/21/20. Pt denies chest pain or any discomfort at this time. - Medication Discharge Medications: Ambulatory Orders Lisinopril 10 mg PO DAILY 05/20/20 Metformin HCl [Glucophage] 500 mg PO BID 05/20/20 Metoprolol Succinate 50 mg PO DAILY 05/20/20 Rosuvastatin [Crestor -] 5 mg PO DAILY 05/20/20 - Medication-Assisted Treatment (MAT) Medication-Assisted Treatment (MAT): No - Discharge Instructions Diet, activity, other medical instructions: Diet:KEITH/Low fat Diet Activity: oob ad estevan Other medical instructions:follow up with primary care provider Dr. Casillas for medical management after discharge. - Diagnosis (1) Alcohol use disorder Status: Chronic (2) Nicotine dependence Status: Chronic Qualifiers: Nicotine product type: cigarettes Substance use status: uncomplicated Qualified Code(s): F17.210 - Nicotine dependence, cigarettes, uncomplicated (3) CVA (cerebral vascular accident) Status: Resolved Qualifiers: Precerebral and cerebral artery: unspecified precerebral artery (4) Emphysema of lung Status: Chronic Qualifiers: Emphysema type: unspecified Qualified Code(s): J43.9 - Emphysema, unspecified (5) Hyperlipidemia Status: Chronic Qualifiers: Hyperlipidemia type: unspecified Qualified Code(s): E78.5 - Hyperlipidemia, unspecified (6) Hypertension Status: Chronic Qualifiers: Hypertension type: essential hypertension Qualified Code(s): I10 - Essential (primary) hypertension (7) IVDU (intravenous drug user) Status: Chronic (8) Type 2 diabetes mellitus Status: Chronic - Follow-up Referral Minutes to complete discharge: 20 - AMA Did Patient Leave Against Medical Advice: Yes Additional Comments: Pt reports he has all his meds at home and will follow up with his primary care provider Dr. Casillas at [address] [place] [address]. reiterated he has no need for courtesy Rx at this visit.
[2020-05-24] MEDS ORDERED: ROSUVASTATIN CA 5 MG TABLET (FP) PO SCH (22:00)
== END 2020-05-24 10:50 | disposition left against medical advice (07) | DRG 770 ==
LOC: YASAS 16:54 → Y5N 23:10
PROVIDERS: ADMIT Allergy & Immunology; ATTEND Allergy & Immunology
PROC: HZ42ZZZ Group Counseling for Substance Abuse Treatment, Cognitive-Behavioral (ICD-10-PCS; principal; 2020-05-21)
DX: F10.20 Alcohol dependence, uncomplicated (principal); F17.210 Nicotine dependence, cigarettes, uncomplicated; F41.9 Anxiety disorder, unspecified; F32.9 Major depressive disorder, single episode, unspecified; I10 Essential (primary) hypertension; J43.9 Emphysema, unspecified; E78.5 Hyperlipidemia, unspecified; E11.9 Type 2 diabetes mellitus without complications; Z79.84 Long term (current) use of oral hypoglycemic drugs; Z86.73 Personal history of transient ischemic attack (TIA), and cerebral infarction without residual deficits
CPT/HCPCS: 36415; 80053; 81003; 82962; 85027; 85660; 86780